=== PATIENT | male | born 1995 | race Caucasian/White ===

== ENCOUNTER 2017-04-12 13:29 | Emergency (ER) | payer OTHER ==
[~2017-04-12] VITALS: Ht 185.4 cm; Wt 64.0 kg
[2017-04-12 14:12] VITALS: Ht 185.4 cm; Wt 64.0 kg
[2017-04-12 16:04] VITALS: BP 104/64
== END 2017-04-12 16:04 | disposition home or self-care (01) ==
LOC: ED 13:29
DX: J20.9 Acute bronchitis, unspecified (principal); F17.210 Nicotine dependence, cigarettes, uncomplicated; Z71.6 Tobacco abuse counseling
CPT/HCPCS: 99406